=== PATIENT | female | born 2000 | race Caucasian/White ===

== ENCOUNTER 2020-08-20 19:16 | Emergency (ER) | payer SELFPAY ==
[2020-08-20 19:22] VITALS: TEMP 97.9
[2020-08-20] MEDS ORDERED: AMOXICILLIN 8751 TAB PO (20:04)
[2020-08-20 20:20] VITALS: BP 136/76; PULSE 107
== END 2020-08-20 20:20 | disposition home or self-care (01) ==
LOC: COL.ER 19:16
DX: L08.89 Other specified local infections of the skin and subcutaneous tissue (principal); F17.290 Nicotine dependence, other tobacco product, uncomplicated

== ENCOUNTER 2020-09-04 13:03 | Emergency (ER) | payer SELFPAY ==
[~2020-09-04] VITALS: Ht 157.5 cm; Wt 113.6 kg
[~2020-09-04 13:03] MED LIST: AMOXICILLIN 8751 TAB PO
[2020-09-04 13:15] VITALS: TEMP 98.8
[2020-09-04 15:13] VITALS: BP 121/72; PULSE 101
== END 2020-09-04 15:13 | disposition home or self-care (01) ==
LOC: COL.ER 13:03
DX: S09.90XA Unspecified injury of head, initial encounter (principal); F17.290 Nicotine dependence, other tobacco product, uncomplicated; X83.8XXA Intentional self-harm by other specified means, initial encounter

== ENCOUNTER 2021-01-03 11:44 | Emergency (ER) | payer SELFPAY ==
[~2021-01-03] VITALS: Ht 157.5 cm; Wt 106.8 kg
[2021-01-03 11:59] VITALS: TEMP 98
[2021-01-03 13:02] LABS: BASO # 0.1 K/mm3 (0.0-0.2); BASO % 0.5 % (0.0-2.0); EOS # 0.9 K/mm3 (0.0-0.7); EOS % 9.4 % (0-4.0); GRAN # 5.5 K/mm3 (1.4-6.5); HEMATOCRIT 37.9 % (35.0-45.0); HEMOGLOBIN 12.6 g/dl (12.0-15.0); LYMPH # 2.4 K/mm3 (1.2-3.4); LYMPH % 24.8 % (20.0-51.0); MEAN CELL VOLUME 91 fl (80.0-95.0); MEAN CORPUSCULAR HEMOGLOBIN 30 pg (26.0-32.0); MEAN CORPUSCULAR HGB CONC 33 g/dl (33.0-37.0); MEAN PLATELET VOLUME 9.7 fl (7.4-10.4); MONO # 0.8 K/mm3 (0.1-0.6); MONO % 7.8 % (1.7-9.3); PLATELET COUNT 473 K/mm3 (130-400); RED BLOOD COUNT 4.19 M/mm3 (4.10-5.30); REDCELL DISTRIBUTION WIDTH-CV 12.8 % (11.5-14.5)
[2021-01-03 13:20] LABS: ALBUMIN 3.1 gm/dL (3.5-5.0); BILIRUBIN,TOTAL 0.2 mg/dL (0.2-1.2); CALCIUM 9.7 mg/dL (8.4-10.2); CREATININE, serum 0.79 mg/dL (0.57-1.11); POTASSIUM 3.9 mmol/L (3.5-4.5); TOTAL PROTEIN 7.1 gm/dL (6.2-8.1)
[2021-01-03] MEDS ORDERED: PROTONIX20 MG PO (13:44)
[2021-01-03 14:10] VITALS: BP 118/72; PULSE 90
== END 2021-01-03 14:10 | disposition home or self-care (01) ==
LOC: COL.ER 11:44
PROVIDERS: Physician Assistant
DX: K21.9 Gastro-esophageal reflux disease without esophagitis (principal); E66.9 Obesity, unspecified; F17.290 Nicotine dependence, other tobacco product, uncomplicated; Z68.41 Body mass index [BMI] 40.0-44.9, adult
CPT/HCPCS: C9113; J2405; J7030

== ENCOUNTER 2021-03-13 14:29 | Emergency (ER) | payer SELFPAY ==
[~2021-03-13] VITALS: Ht 157.5 cm; Wt 115.9 kg
[~2021-03-13 14:29] MED LIST changes: +PROTONIX20 MG PO
[2021-03-13 17:15] VITALS: BP 122/66; PULSE 84; TEMP 98.3
== END 2021-03-13 17:15 | disposition home or self-care (01) ==
LOC: COL.ER 14:29
DX: J06.9 Acute upper respiratory infection, unspecified (principal); F17.210 Nicotine dependence, cigarettes, uncomplicated; Z20.822 Contact with and (suspected) exposure to COVID-19

== ENCOUNTER 2021-04-25 19:51 | Emergency (ER) | payer SELFPAY ==
[~2021-04-25] VITALS: Ht 157.5 cm; Wt 127.3 kg
[2021-04-25 20:09] VITALS: TEMP 98.4
[2021-04-25 20:45] VITALS: BP 118/61; PULSE 80
== END 2021-04-25 20:50 | disposition home or self-care (01) ==
LOC: COL.ER 19:51
DX: S91.115A Laceration without foreign body of left lesser toe(s) without damage to nail, initial encounter (principal); W25.XXXA Contact with sharp glass, initial encounter

== ENCOUNTER 2023-08-22 17:52 | Emergency (ER) | payer SELFPAY ==
[~2023-08-22] VITALS: Ht 157.5 cm; Wt 117.0 kg
[~2023-08-22 17:52] MED LIST changes: +ZOFRAN ODT4 MG PO
[2023-08-22 18:20] VITALS: TEMP 98.9
[2023-08-22 20:13] LABS: URINE APPEARANCE CLOUDY (CLEAR/HAZY); URINE BLOOD TRACE (NEGATIVE); URINE COLOR YELLOW (YELLOW); URINE GLUCOSE NEGATIVE (NEGATIVE); URINE KETONE NEGATIVE (NEGATIVE); URINE NITRATE NEGATIVE (NEGATIVE); URINE PROTEIN(semi-quant) NEGATIVE (NEGATIVE)
[2023-08-22 20:33] LABS: COLLECTION METHOD CLEAN CATCH
[2023-08-22 21:28] VITALS: BP 118/80; PULSE 75
== END 2023-08-22 21:40 | disposition home or self-care (01) ==
LOC: COL.ER 17:52
PROVIDERS: Emergency Medicine
DX: R10.13 Epigastric pain (principal); R11.2 Nausea with vomiting, unspecified; F17.210 Nicotine dependence, cigarettes, uncomplicated; F17.290 Nicotine dependence, other tobacco product, uncomplicated

== ENCOUNTER → 2023-08-23 | Outpatient (CLI) | payer SELFPAY | LOC: COL.RAD 05:15 | DX: R10.11 Right upper quadrant pain (principal); R11.2 Nausea with vomiting, unspecified ==